=== PATIENT | male | born 1990 | race Caucasian/White ===

== ENCOUNTER 2019-03-04 18:22 | Emergency (ER) | payer BC ==
[~2019-03-04] VITALS: Ht 172.7 cm; Wt 95.2 kg
[~2019-03-04 18:22] MED LIST: Flomax0.4 MG PO; HYDR1TAB94; KETO10 PO; Percocet 5-3251 EACH PO; Zofran Odt8 MG SL
[2019-03-05] MEDS ORDERED: Percocet 7.5-31 EACH PO ×2 (18:26→18:37)
== END 2019-03-04 20:00 | disposition home or self-care (01) ==
LOC: ER 18:22
DX: M75.32 Calcific tendinitis of left shoulder (principal); Z87.442 Personal history of urinary calculi; Z79.899 Other long term (current) drug therapy
CPT/HCPCS: 73030; 99283-25

== ENCOUNTER 2019-03-05 17:18 | Emergency (ER) | payer BC ==
[~2019-03-05] VITALS: Ht 172.7 cm; Wt 95.2 kg
[2019-03-05] MEDS ORDERED: Percocet 7.5-31 EACH PO ×2 (18:26→18:37)
== END 2019-03-05 18:43 | disposition home or self-care (01) ==
LOC: ER 17:18
DX: M75.32 Calcific tendinitis of left shoulder (principal); Z87.442 Personal history of urinary calculi
CPT/HCPCS: 99282; A9270

== ENCOUNTER → 2020-03-23 | Outpatient (CLI) | payer OTHER ==
[~2020-03-23] MED LIST changes: +Percocet 7.5-31 EACH PO
== END | disposition home or self-care (01) ==
LOC: LAB 16:46 → LAB SHORT 16:46
DX: R05 Cough (principal); Z20.828 Contact with and (suspected) exposure to other viral communicable diseases
CPT/HCPCS: U0003

== ENCOUNTER → 2020-03-23 | Outpatient (CLI) | payer SELFPAY | END | disposition home or self-care (01) | LOC: LAB SHORT 16:48 → LAB 16:48 | DX: R07.0 Pain in throat (principal) | CPT/HCPCS: 87081 ==

== ENCOUNTER 2021-01-11 19:56 | Emergency (ER) | payer OTHER ==
[~2021-01-11] VITALS: Ht 172.7 cm; Wt 99.8 kg
== END 2021-01-12 00:45 | disposition home or self-care (01) ==
LOC: ER 19:56
DX: M25.562 Pain in left knee (principal)
CPT/HCPCS: 73562-LT; 96372; 99283-25; A9270; J1885

== ENCOUNTER 2021-01-19 07:41 | Emergency (ER) | payer OTHER ==
[~2021-01-19] VITALS: Ht 172.7 cm; Wt 97.5 kg
[2021-01-19] MEDS ORDERED: IBU800 MG PO (09:00)
[2021-01-19] MEDS ORDERED: HYDR1TAB94 PO (09:00)
== END 2021-01-19 09:10 | disposition home or self-care (01) ==
LOC: ER 07:41
DX: M23.92 Unspecified internal derangement of left knee (principal)
CPT/HCPCS: 99283

== ENCOUNTER 2021-02-01 07:34 | Emergency (ER) | payer OTHER ==
[~2021-02-01] VITALS: Ht 172.7 cm; Wt 99.8 kg
[~2021-02-01 07:34] MED LIST changes: +HYDR1TAB94 PO; +IBU800 MG PO
== END 2021-02-01 08:36 | disposition home or self-care (01) ==
LOC: ER 07:34
DX: M75.31 Calcific tendinitis of right shoulder (principal)
CPT/HCPCS: 99282

== ENCOUNTER 2021-02-04 11:27 | Emergency (ER) | payer OTHER ==
[~2021-02-04] VITALS: Ht 172.7 cm; Wt 97.5 kg
== END 2021-02-04 14:43 | disposition left against medical advice (07) ==
LOC: ER 11:27
DX: M25.511 Pain in right shoulder (principal); Z53.20 Procedure and treatment not carried out because of patient's decision for unspecified reasons
CPT/HCPCS: 99282

== ENCOUNTER 2021-07-01 21:17 | Emergency (ER) | payer OTHER ==
[~2021-07-01] VITALS: Ht 172.7 cm; Wt 93.0 kg
[2021-07-01] MEDS ORDERED: Indomethacin50 MG PO (23:57)
== END 2021-07-02 00:13 | disposition home or self-care (01) ==
LOC: ER 21:17
DX: M10.9 Gout, unspecified (principal)
CPT/HCPCS: 99283; A9270

== ENCOUNTER 2023-04-21 11:03 | Emergency (ER) | payer OTHER ==
[~2023-04-21] VITALS: Ht 172.7 cm; Wt 90.7 kg
[~2023-04-21 11:03] MED LIST changes: +CODEINE-GUAIFE120 M1 PO; +Indomethacin50 MG PO; +Tessalon Perle100 MG PO
[2023-04-21 11:16] VITALS: BP 134/96
== END 2023-04-21 12:37 | disposition home or self-care (01) ==
LOC: ER 11:03
DX: M25.562 Pain in left knee (principal); Z79.899 Other long term (current) drug therapy
CPT/HCPCS: 73562-LT; 99283-25